=== PATIENT | female | born 1950 | race Caucasian/White ===

== ENCOUNTER → 2020-11-04 | Outpatient (REF) | payer MEDICARE ==
[2020-11-04 17:52] LABS: ALBUMIN 3.8 GM/DL (3.2-5.2); ALT/SGPT 31 U/L (12-78); BILIRUBIN,TOTAL 0.3 MG/DL (0.2-1.0); BLOOD UREA NITROGEN 24 MG/DL (7-18); CALCIUM LEVEL 9.7 MG/DL (8.8-10.2); CARBON DIOXIDE LEVEL 27 MEQ/L (21-32); CHLORIDE LEVEL 105 MEQ/L (98-107); CREATININE FOR GFR 0.97 MG/DL (0.55-1.30); GLOMERULAR FILTRATION RATE > 60.0 (>45); GLUCOSE, FASTING 113 MG/DL (70-100); MAGNESIUM LEVEL 1.7 MG/DL (1.8-2.4); POTASSIUM SERUM 4.5 MEQ/L (3.5-5.1); SODIUM LEVEL 139 MEQ/L (136-145); TOTAL PROTEIN 6.5 GM/DL (6.4-8.2)
== END ==
LOC: M SFHCADAM 13:50
PROVIDERS: ATTEND Physician Assistant
DX: E78.2 Mixed hyperlipidemia (principal); I10 Essential (primary) hypertension; E11.65 Type 2 diabetes mellitus with hyperglycemia; E61.2 Magnesium deficiency; E55.9 Vitamin D deficiency, unspecified
CPT/HCPCS: 80053; 82306; 83735; G0463

== ENCOUNTER → 2021-03-01 | Outpatient (REF) | payer MEDICARE | LOC: M SFHCADAM 16:33 | PROVIDERS: ATTEND Physician Assistant | DX: R05 Cough (principal) | CPT/HCPCS: 87426; G0463; U0003 ==

== ENCOUNTER → 2022-02-23 | Outpatient (REF) | payer MEDICARE | LOC: M SFHCADAM 16:28 | PROVIDERS: ATTEND Physician Assistant | DX: R05.9 Cough, unspecified (principal) ==

== ENCOUNTER → 2022-03-08 | Outpatient (REF) | payer MEDICARE ==
[2022-03-08 16:23] LABS: ALBUMIN 3.6 GM/DL (3.2-5.2); BILIRUBIN,TOTAL 0.5 MG/DL (0.2-1.0); CALCIUM LEVEL 9.6 MG/DL (8.8-10.2); CHOLESTEROL RISK RATIO 4.476 (<5); CREATININE FOR GFR 0.98 MG/DL (0.55-1.30); GLOMERULAR FILTRATION RATE 59.9 (>45); POTASSIUM SERUM 4.8 MEQ/L (3.5-5.1); TOTAL PROTEIN 6.7 GM/DL (6.4-8.2)
[2022-03-08 16:37] LABS: HEMOGLOBIN A1c 5.8 %
[2022-03-08 16:46] LABS: TOTAL 25(OH) VITAMIN D 49.8 NG/ML (30.0-100.0)
== END ==
LOC: M SFHCADAM 13:43
PROVIDERS: ATTEND Physician Assistant
DX: E78.2 Mixed hyperlipidemia (principal); I10 Essential (primary) hypertension; E11.65 Type 2 diabetes mellitus with hyperglycemia; E61.2 Magnesium deficiency; E55.9 Vitamin D deficiency, unspecified

== ENCOUNTER → 2022-06-15 | Outpatient (REF) | payer MEDICARE | LOC: M SFHCADAM 12:40 | PROVIDERS: ATTEND Family Medicine | DX: R05.9 Cough, unspecified (principal) ==

== ENCOUNTER → 2022-11-01 | Outpatient (REF) | payer MEDICARE | LOC: M SFHCPLAZ 16:08 | PROVIDERS: ATTEND Family Medicine | DX: R09.89 Other specified symptoms and signs involving the circulatory and respiratory systems (principal) ==

== ENCOUNTER → 2023-01-25 | Outpatient (REF) | payer MEDICARE ==
[2023-01-25 15:02] LABS: BASO % 0.4 % (0.0-1.0); EOS # 0.1 10^3/uL (0.0-0.5); EOS % 1.1 % (0.0-3.0); HEMATOCRIT 39.5 % (36.0-47.0); HEMOGLOBIN 12.6 g/dl (12.0-15.5); LYMPH # 2.8 10^3/uL (1.5-5.0); LYMPH % 39.1 % (24.0-44.0); MEAN CORPUSCULAR HEMOGLOBIN 30.7 pg (27.0-33.0); MEAN CORPUSCULAR HGB CONC 31.9 g/dl (32.0-36.5); MEAN CORPUSCULAR VOLUME 96.3 fl (80.0-96.0); MONO # 0.5 10^3/uL (0.0-0.8); MONO % 6.8 % (2.0-8.0); NEUTROPHILS # 3.8 10^3/uL (1.5-8.5); NEUTROPHILS % 52.3 % (36.0-66.0); PLATELET COUNT, AUTOMATED 216 10^3/uL (150-450); WHITE BLOOD COUNT 7.2 10^3/uL (4.0-10.0)
[2023-01-25 15:08] LABS: ALBUMIN 3.6 G/DL (3.2-5.2); BILIRUBIN,TOTAL 0.5 MG/DL (0.3-1.2); CALCIUM LEVEL 9.7 MG/DL (8.3-10.6); CHOLESTEROL RISK RATIO 3.45 (<5); CREATININE FOR GFR 1.11 MG/DL (0.55-1.30); GLOMERULAR FILTRATION RATE 51.7 (>39); HDL CHOLESTEROL 54.1 MG/DL (>40); LDL CHOLESTEROL 101.3 MG/DL (<100); NON-HDL-C 132.9 MG/DL; TOTAL PROTEIN 6.3 G/DL (5.7-8.2)
[2023-01-25 15:09] LABS: THYROID STIMULATING HORMONE 2.071 uIU/ML (0.55-4.78)
[2023-01-25 18:44] LABS: HEMOGLOBIN A1c 5.7 % (4.0-6.0)
== END ==
LOC: M SFHCADAM 09:20
PROVIDERS: ATTEND Family Medicine
DX: Z00.00 Encounter for general adult medical examination without abnormal findings (principal); E11.69 Type 2 diabetes mellitus with other specified complication

== ENCOUNTER → 2023-09-06 | Outpatient (REF) | payer MEDICARE ==
[2023-09-06 18:09] LABS: ALBUMIN 3.7 G/DL (3.2-5.2); BILIRUBIN,TOTAL 0.3 MG/DL (0.3-1.2); CALCIUM LEVEL 9.3 MG/DL (8.3-10.6); CREATININE FOR GFR 1.12 MG/DL (0.55-1.30); GLOMERULAR FILTRATION RATE 51.1 (>39); PERCENT SATURATION 25.9 % (13.2-45.0); POTASSIUM SERUM 4.6 MMOL/L (3.5-5.1); TOTAL PROTEIN 6.5 G/DL (5.7-8.2)
[2023-09-06 18:59] LABS: HEMOGLOBIN A1c 6.1 % (4.0-6.0)
== END ==
LOC: M SFHCADAM 13:49
PROVIDERS: ATTEND Family Medicine
DX: G47.62 Sleep related leg cramps (principal); E11.69 Type 2 diabetes mellitus with other specified complication

== ENCOUNTER → 2024-01-08 | Outpatient (REF) | payer MEDICARE | LOC: M SFHCADAM 15:49 | PROVIDERS: ATTEND Family Medicine | DX: R30.0 Dysuria (principal) ==

== ENCOUNTER → 2024-10-07 | Outpatient (REF) | payer MEDICARE ==
[2024-10-07 18:23] LABS: ALBUMIN 3.7 G/DL (3.2-5.2); BILIRUBIN,TOTAL 0.3 MG/DL (0.3-1.2); CALCIUM LEVEL 9.9 MG/DL (8.3-10.6); CREATININE FOR GFR 1.1 MG/DL (0.55-1.30); POTASSIUM SERUM 4.8 MMOL/L (3.5-5.1); TOTAL PROTEIN 7.2 G/DL (5.7-8.2)
[2024-10-07 18:30] LABS: CREATININE, URINE 159.1 MG/DL; MALB URINE SIEMENS < 3.0 MG/L
== END ==
LOC: M SFHCADAM 14:36
PROVIDERS: ATTEND Family Medicine
DX: E11.69 Type 2 diabetes mellitus with other specified complication (principal)

== ENCOUNTER 2025-01-01 18:08 | Inpatient (IN) | payer MEDICARE ==
[~2025-01-01] VITALS: Ht 160 cm; Wt 98.7 kg
[2025-01-01] MEDS ORDERED: OMEP-173 PO (18:22)
[2025-01-01] MEDS ORDERED: BUPR150T12 PO (18:22)
[2025-01-01] MEDS ORDERED: CLAR10CA3 PO (18:22)
[2025-01-01] MEDS ORDERED: INSUN INJ (18:22)
[2025-01-01] MEDS ORDERED: HYDR-3490 PO (18:22)
[2025-01-01] MEDS ORDERED: INSUH10VL INJ (18:22)
[2025-01-01] MEDS ORDERED: FENO145T7 PO (18:22)
[2025-01-01] MEDS ORDERED: CEPH500C PO (18:22)
[2025-01-01] MEDS ORDERED: LISI40TA4 PO (18:22)
[2025-01-01] MEDS ORDERED: ERGO500029 PO (18:22)
[2025-01-01] MEDS ORDERED: EZET10TA21 PO (18:22)
[2025-01-01] MEDS ORDERED: METF-838 PO (18:22)
[2025-01-01 20:05] LABS: BASO % 0.2 % (0.0-1.0); EOS # 0.1 10^3/uL (0.0-0.5); EOS % 0.5 % (0.0-3.0); HEMATOCRIT 39.4 % (36.0-47.0); HEMOGLOBIN 12.8 g/dl (12.0-15.5); LYMPH # 2.2 10^3/uL (1.5-5.0); LYMPH % 18.4 % (24.0-44.0); MEAN CORPUSCULAR HEMOGLOBIN 30.5 pg (27.0-33.0); MEAN CORPUSCULAR HGB CONC 32.5 g/dl (32.0-36.5); MONO # 0.7 10^3/uL (0.0-0.8); MONO % 6.2 % (2.0-8.0); NEUTROPHILS # 8.9 10^3/uL (1.5-8.5); NEUTROPHILS % 74.4 % (36.0-66.0); PLATELET COUNT, AUTOMATED 216 10^3/uL (150-450); RED BLOOD COUNT 4.19 10^6/uL (4.00-5.40); WHITE BLOOD COUNT 11.9 10^3/uL (4.0-10.0)
[2025-01-01 20:09] LABS: ERYTHROCYTE SEDIMENTATION RATE 50 mm/hr (0-30)
[2025-01-01 20:38] LABS: C REACTIVE PROTEIN QUANTITATIV 24.32 MG/DL (<1.0); CALCIUM LEVEL 9.3 MG/DL (8.3-10.6); CREATININE FOR GFR 1.24 MG/DL (0.55-1.30); GLOMERULAR FILTRATION RATE 45.3 (>39); POTASSIUM SERUM 4.1 MMOL/L (3.5-5.1)
[2025-01-01] MEDS: INSULIN LISPRO (NovoLOG) PER UNIT SC SCH (21:00)
[2025-01-01] MEDS: VANCOMYCIN HCL 2,000 MG, VIAL MATE ADAPTER 1 EACH in NS 500 ML IV ONE (21:09)
[2025-01-01] MEDS ORDERED: INSUN SC (21:41)
[2025-01-01] MEDS ORDERED: MAGN64TASA PO ×2 (21:41)
[2025-01-01] MEDS ORDERED: ACET-683 PO (21:41)
[2025-01-01] MEDS ORDERED: HOME MED LIST COMPLETE! XX SCH (21:45)
[2025-01-01] MEDS ORDERED: MOM 30ML SUSPENSION UDC PO PRN (21:55)
[2025-01-01] MEDS ORDERED: GLUCAGON INJ 1MG VIAL SC PRN (21:55)
[2025-01-01] MEDS ORDERED: DEXTROSE 50% 50ML SYRINGE IV PRN (21:55)
[2025-01-01] MEDS ORDERED: GLUCOSE 4 GM CHEW PO PRN (21:55)
[2025-01-01 22:42] VITALS: BP 130/82; TEMP 97.7; O2SAT 100
[2025-01-01] MEDS: ACETAMINOPHEN 325 MG TAB PO PRN (22:59)
[2025-01-01] MEDS: MAGNESIUM GLUCONATE 500 MG TAB PO SCH (23:50)
[2025-01-02] MEDS: KETOROLAC 30 MG/ML 1ML VIAL IV ONE (02:32)
[2025-01-02] MEDS: VANCOMYCIN HCL 1,000 MG, VIAL MATE ADAPTER 1 EACH in NS 250 ML IV SCH ×2 (04:39→16:02)
[2025-01-02 04:43] VITALS: BP 123/69; TEMP 97.7; O2SAT 96
[2025-01-02 06:11] LABS: HEMATOCRIT 33.9 % (36.0-47.0); MEAN CORPUSCULAR HEMOGLOBIN 30.4 pg (27.0-33.0); MEAN CORPUSCULAR HGB CONC 32.4 g/dl (32.0-36.5); MEAN CORPUSCULAR VOLUME 93.6 fl (80.0-96.0); PLATELET COUNT, AUTOMATED 187 10^3/uL (150-450); RED BLOOD COUNT 3.62 10^6/uL (4.00-5.40); WHITE BLOOD COUNT 10.7 10^3/uL (4.0-10.0)
[2025-01-02 06:35] LABS: ALBUMIN 2.8 G/DL (3.2-5.2); BILIRUBIN,TOTAL 0.4 MG/DL (0.3-1.2); CALCIUM LEVEL 8.6 MG/DL (8.3-10.6); CREATININE FOR GFR 1.14 MG/DL (0.55-1.30); GLOMERULAR FILTRATION RATE 49.9 (>39); POTASSIUM SERUM 4.2 MMOL/L (3.5-5.1); TOTAL PROTEIN 5.7 G/DL (5.7-8.2)
[2025-01-02] MEDS: INSULIN LISPRO (NovoLOG) PER UNIT SC SCH (07:30)
[2025-01-02] MEDS: NORCO, ANEXSIA 5/325MG TABLET (HYDROcodone/ACETAMINOPHEN) PO PRN (07:41)
[2025-01-02 07:53] LABS: MAGNESIUM LEVEL 1.6 MG/DL (1.8-2.4)
[2025-01-02] MEDS: HEPARIN SOD (PORCINE) 5000UNITS/ML 1ML VIAL/SYRINGE SC SCH (09:25)
[2025-01-02] MEDS: cefTRIAXone SOD 2 GM in DEXTROSE 5% (D5W) ADV/MINI-BAG 50 ML IV SCH (09:25)
[2025-01-02] MEDS: buPROPion **XL** TABLET 150MG (WELLBUTRIN XL) PO SCH (09:25)
[2025-01-02] MEDS: EZETIMIBE 10MG TABLET (ZETIA) PO SCH (09:26)
[2025-01-02] MEDS: lisinopriL 40MG TAB PO SCH (09:26)
[2025-01-02] MEDS: FENOFIBRATE 145MG TABLET (TRICOR) PO SCH (09:26)
[2025-01-02] MEDS: MAGNESIUM GLUCONATE 500 MG TAB PO SCH (09:26)
[2025-01-02] MEDS: PANTOPRAZOLE 40MG TAB (PROTONIX) PO SCH (10:52)
[2025-01-02] MEDS: KETOROLAC 30 MG/ML 1ML VIAL IV PRN (10:53)
[2025-01-02 13:06] VITALS: BP 142/78; TEMP 97.7; O2SAT 97
[2025-01-02 15:25] LABS: VANCOMYCIN RANDOM 18.2 UG/ML
[2025-01-02] MEDS: LIDOCAINE 1% MDV 20ML VIAL SC ONE ×2 (15:33→15:56)
[2025-01-02 15:34] LABS: ANTI-STREPTOLYSIN O QUANT 143.2 IU/ML (<195)
[2025-01-02 19:34] VITALS: BP 140/81; TEMP 98.1; O2SAT 97
[2025-01-03 04:07] VITALS: BP 115/66; TEMP 97.7; O2SAT 95
[2025-01-03 06:05] LABS: BASO % 0.1 % (0.0-1.0); EOS # 0.1 10^3/uL (0.0-0.5); EOS % 0.7 % (0.0-3.0); HEMATOCRIT 31.6 % (36.0-47.0); HEMOGLOBIN 10.1 g/dl (12.0-15.5); LYMPH % 22.2 % (24.0-44.0); MEAN CORPUSCULAR VOLUME 93.8 fl (80.0-96.0); MONO # 0.7 10^3/uL (0.0-0.8); MONO % 7.7 % (2.0-8.0); NEUTROPHILS # 6.2 10^3/uL (1.5-8.5); PLATELET COUNT, AUTOMATED 184 10^3/uL (150-450); RED BLOOD COUNT 3.37 10^6/uL (4.00-5.40); WHITE BLOOD COUNT 8.9 10^3/uL (4.0-10.0)
[2025-01-03 06:30] LABS: C REACTIVE PROTEIN QUANTITATIV 16.23 MG/DL (<1.0); CALCIUM LEVEL 8.3 MG/DL (8.3-10.6); CREATININE FOR GFR 1.32 MG/DL (0.55-1.30); GLOMERULAR FILTRATION RATE 42.1 (>39); MAGNESIUM LEVEL 1.9 MG/DL (1.8-2.4)
[2025-01-03] MEDS: NS (Normal Saline) 0.9% 1,000 ML IV SCH (08:07)
[2025-01-03 12:30] VITALS: BP 130/73; TEMP 98.2; O2SAT 97
[2025-01-03 19:48] VITALS: BP 131/74; TEMP 98.1; O2SAT 98
[2025-01-04 04:20] VITALS: BP 112/57; TEMP 97.7; O2SAT 98
[2025-01-04 06:18] LABS: CALCIUM LEVEL 8.3 MG/DL (8.3-10.6); CREATININE FOR GFR 1.19 MG/DL (0.55-1.30); GLOMERULAR FILTRATION RATE 47.5 (>39); MAGNESIUM LEVEL 2.1 MG/DL (1.8-2.4); POTASSIUM SERUM 4.2 MMOL/L (3.5-5.1)
[2025-01-04 12:00] VITALS: BP 123/68; TEMP 97.6; O2SAT 97
[2025-01-04 19:48] VITALS: BP 147/77; TEMP 98.1; O2SAT 97
[2025-01-05 04:14] VITALS: BP 143/76; TEMP 97.7; O2SAT 97
[2025-01-05] MEDS: AUGMENTIN 875 MG TAB PO SCH (08:09)
[2025-01-05] MEDS ORDERED: AMOX875T2 PO (08:51)
[2025-01-05] MEDS ORDERED: PROBCAP14 PO (08:56)
[2025-01-05 09:00] VITALS: BP 114/64
== END 2025-01-05 16:10 | disposition home or self-care (01) | DRG 603 ==
LOC: M ED 18:08 → M ED INP 21:54 → M MS5PR 22:40
PROVIDERS: ADMIT Internal Medicine; ATTEND Student in an Organized Health Care Education/Training Program
PROC: 0HBGXZZ Excision of Left Hand Skin, External Approach (ICD-10-PCS; principal; 2025-01-04)
DX: L03.011 Cellulitis of right finger (principal); N17.9 Acute kidney failure, unspecified; J45.909 Unspecified asthma, uncomplicated; E78.5 Hyperlipidemia, unspecified; I10 Essential (primary) hypertension; E11.9 Type 2 diabetes mellitus without complications; L03.021 Acute lymphangitis of right finger; Z79.4 Long term (current) use of insulin; E28.2 Polycystic ovarian syndrome; M15.9 Polyosteoarthritis, unspecified; Z86.16 Personal history of COVID-19; Z98.41 Cataract extraction status, right eye; Z98.42 Cataract extraction status, left eye; Z88.5 Allergy status to narcotic agent; Z88.8 Allergy status to other drugs, medicaments and biological substances; Z79.899 Other long term (current) drug therapy; M54.2 Cervicalgia

== ENCOUNTER 2025-01-09 07:50 | Day surgery (SDC) | payer MEDICARE, MEDICAID ==
[~2025-01-09] VITALS: Ht 162.6 cm; Wt 100.5 kg
[~2025-01-09 07:50] MED LIST: ACET-683 PO; ACID1TAB PO; AMOX875T2 PO; BUPR150T12 PO; CEPH500C PO; CLAR10CA3 PO; ERGO500029 PO; EZET10TA21 PO; FENO145T7 PO; HYDR-3490 PO; INSUH10VL INJ; INSUN INJ; INSUN SC; LISI40TA4 PO; MAGN64TASA PO; METF-838 PO; OMEP-173 PO; PROBCAP14 PO
[2025-01-09] MEDS: LR 1,000 ML IV SCH (09:24)
[2025-01-09] MEDS ORDERED: propofoL 200 MG/20 ML VIAL As Ordered ONE (09:31)
[2025-01-09] MEDS ORDERED: dexmedeTOMIDine (4MCG/ML)200MCG/50ML BTL (PRECEDEX) As Ordered ONE (09:31)
[2025-01-09] MEDS ORDERED: LIDOCAINE 2% 100MG/5ML SDV (FOR ANES.) As Ordered ONE (09:31)
[2025-01-09] MEDS ORDERED: ONDANSETRON 4MG 2ML VIAL As Ordered ONE (09:32)
[2025-01-09] MEDS ORDERED: fentaNYL 100 MCG/2 ML INJECTION As Ordered ONE (10:07)
[2025-01-09] MEDS: ceFAZolin SODIUM 2 GM VIAL As Ordered ONE (10:18)
[2025-01-09] MEDS: LIDOCAINE 1% SDV 30ML VIAL As Ordered ONE (10:26)
[2025-01-09] MEDS ORDERED: LR 1,000 ML IV SCH (10:50)
[2025-01-09] MEDS ORDERED: oxyCODONE 5MG TAB PO PRN (10:50)
[2025-01-09] MEDS ORDERED: HYDROMORPHONE HCL 0.5 MG/ 0.5 ML SYRINGE IV PRN (10:50)
[2025-01-09] MEDS ORDERED: fentaNYL 100 MCG/2 ML INJECTION IV PRN (10:50)
[2025-01-09] MEDS ORDERED: ONDANSETRON 4MG 2ML VIAL IV PRN (10:50)
[2025-01-09 11:28] VITALS: BP 172/85; TEMP 97.6; O2SAT 97
[2025-01-09] MEDS: KETOROLAC 30 MG/ML 1ML VIAL IV ONE (11:56)
== END 2025-01-09 12:15 | disposition home or self-care (01) ==
LOC: M SDC 07:50
PROVIDERS: ATTEND Orthopaedic Surgery
DX: L03.011 Cellulitis of right finger (principal); E11.9 Type 2 diabetes mellitus without complications; I10 Essential (primary) hypertension; E78.5 Hyperlipidemia, unspecified; Z88.5 Allergy status to narcotic agent; Z79.2 Long term (current) use of antibiotics; Z79.84 Long term (current) use of oral hypoglycemic drugs; Z79.899 Other long term (current) drug therapy; Z79.4 Long term (current) use of insulin
CPT/HCPCS: 11042; 87070; 87075; 87205; J0665; J0690; J1100; J1885; J2405; J3010

== ENCOUNTER → 2025-02-05 | Outpatient (REF) | payer MEDICARE ==
[2025-02-05 13:15] LABS: BASO % 0.4 % (0.0-1.0); EOS # 0.1 10^3/uL (0.0-0.5); EOS % 1.3 % (0.0-3.0); HEMATOCRIT 33.9 % (36.0-47.0); HEMOGLOBIN 10.7 g/dl (12.0-15.5); LYMPH # 1.7 10^3/uL (1.5-5.0); LYMPH % 37.4 % (24.0-44.0); MEAN CORPUSCULAR HEMOGLOBIN 30.1 pg (27.0-33.0); MEAN CORPUSCULAR HGB CONC 31.6 g/dl (32.0-36.5); MEAN CORPUSCULAR VOLUME 95.5 fl (80.0-96.0); MONO # 0.3 10^3/uL (0.0-0.8); MONO % 5.9 % (2.0-8.0); NEUTROPHILS # 2.5 10^3/uL (1.5-8.5); NEUTROPHILS % 54.6 % (36.0-66.0); PLATELET COUNT, AUTOMATED 179 10^3/uL (150-450); RED BLOOD COUNT 3.55 10^6/uL (4.00-5.40); WHITE BLOOD COUNT 4.6 10^3/uL (4.0-10.0)
[2025-02-05 13:21] LABS: ALBUMIN 3.3 G/DL (3.2-5.2); BILIRUBIN,TOTAL 0.3 MG/DL (0.3-1.2); CALCIUM LEVEL 9.2 MG/DL (8.3-10.6); CHOLESTEROL RISK RATIO 3.31 (<5); CREATININE FOR GFR 1.01 MG/DL (0.55-1.30); GLOMERULAR FILTRATION RATE 59.2 (>39); HDL CHOLESTEROL 47.1 MG/DL (>40); LDL CHOLESTEROL 81.7 MG/DL (<100); NON-HDL-C 108.9 MG/DL; POTASSIUM SERUM 4.5 MMOL/L (3.5-5.1)
[2025-02-05 13:41] LABS: HEMOGLOBIN A1c 5.5 % (4.0-6.0)
== END ==
LOC: M SFHCADAM 10:12
PROVIDERS: ATTEND Family Medicine
DX: Z00.00 Encounter for general adult medical examination without abnormal findings (principal); E11.69 Type 2 diabetes mellitus with other specified complication

== ENCOUNTER → 2025-05-15 | Outpatient (REF) | payer MEDICARE ==
[~2025-05-15] MED LIST changes: +LISI40TA10 PO; -LISI40TA4 PO
[2025-05-15 17:10] LABS: ALT/SGPT 18.0 U/L (7.0-40); AST/SGOT 20.0 U/L (<34); CALCIUM LEVEL 9.2 MG/DL (8.3-10.6); CARBON DIOXIDE LEVEL 24.0 MMOL/L (20-31); CHLORIDE LEVEL 107.0 MMOL/L (98-107); CREATININE FOR GFR 1.01 MG/DL (0.55-1.30); GLOMERULAR FILTRATION RATE 58.8 (>39); POTASSIUM SERUM 4.4 MMOL/L (3.5-5.1); SODIUM LEVEL 144.0 MMOL/L (136-145)
[2025-05-15 17:55] LABS: ESTIMATED AVERAGE GLUCOSE 134.0 MG/DL (60-110)
== END ==
LOC: M SFHCADAM 14:36
PROVIDERS: ATTEND Family Medicine
DX: E11.69 Type 2 diabetes mellitus with other specified complication (principal)

== ENCOUNTER → 2025-08-05 | Outpatient (REF) | payer MEDICARE ==
[~2025-08-05] MED LIST changes: -EZET10TA21 PO; +EZET10TA57 PO
[2025-08-05 17:24] LABS: ALT/SGPT 13.0 U/L (7.0-40); AST/SGOT 16.0 U/L (<34); CALCIUM LEVEL 10.0 MG/DL (8.3-10.6); CARBON DIOXIDE LEVEL 26.0 MMOL/L (20-31); CHLORIDE LEVEL 105.0 MMOL/L (98-107); CREATININE FOR GFR 1.05 MG/DL (0.55-1.30); GLOMERULAR FILTRATION RATE 56.1 (>39); POTASSIUM SERUM 4.4 MMOL/L (3.5-5.1); SODIUM LEVEL 142.0 MMOL/L (136-145)
[2025-08-05 17:40] LABS: ESTIMATED AVERAGE GLUCOSE 143.0 MG/DL (60-110)
== END ==
LOC: M SFHCADAM 14:01
PROVIDERS: ATTEND Family Medicine
DX: E11.69 Type 2 diabetes mellitus with other specified complication (principal)